=== PATIENT | male | born 1980 | race Caucasian/White ===

== ENCOUNTER 2020-03-26 16:42 | Emergency (ER) | payer OTHER ==
[~2020-03-26] VITALS: Ht 165.1 cm; Wt 73.0 kg
[2020-03-26] MEDS ORDERED: LORAZEPAM 1MG TABLET PO ONE (17:15)
[2020-03-26 17:40] VITALS: BP 158/91
== END 2020-03-26 17:49 | disposition home or self-care (01) ==
LOC: ER 16:42
DX: F41.9 Anxiety disorder, unspecified (principal)
CPT/HCPCS: 93005; 99283